=== PATIENT | female | born 1985 | race Caucasian/White ===

== ENCOUNTER 2018-12-27 12:44 | Observation (INO) | payer OTHER ==
[~2018-12-27] VITALS: Ht 154.9 cm; Wt 59.0 kg
[2018-12-27] MEDS ORDERED: DEXT 5%/LACTATED RINGERS 1,000 ML IV SCH (14:45)
== END 2018-12-27 16:35 | disposition home or self-care (01) ==
LOC: 8 EST LDRP 12:44
PROVIDERS: ADMIT Obstetrics & Gynecology; ATTEND Obstetrics & Gynecology
DX: O26.853 Spotting complicating pregnancy, third trimester (principal); O26.893 Other specified pregnancy related conditions, third trimester; R10.9 Unspecified abdominal pain; Z3A.32 32 weeks gestation of pregnancy
CPT/HCPCS: 76805; 76818; 99281; G0378; 96360; J7121